=== PATIENT | female | born 2000 | race Caucasian/White ===

== ENCOUNTER 2018-05-19 13:32 | Emergency (ER) | payer OTHER ==
[~2018-05-19] VITALS: Ht 165.1 cm; Wt 113.4 kg
--- OUTSIDE RECORDS SUMMARY | 2018-05-19 13:40 | XMS REPORT | Continuity of Care Document ---
Author Author [facility] Address Unknown Phone Unavailable Allergies Active Description Code Type Severity Reaction Onset Reported/Identified Relationship to Patient Clinical Status Yes CEPHALEXIN SEVERE OTHER Medications There is no data. Problems Date Dx Coded Attending Type Code Diagnosis Diagnosed By 05/13/2014 JARAD ABARCA APRN V04.89 GARDASIL (HPV) DX 05/13/2014 JARAD ABARCA APRN V04.89 GARDASIL (HPV) DX 04/29/2018 Octavio Epperson 401.9 UNSPECIFIED ESSENTIAL HYPERTENSION 04/29/2018 Octavio Epperson 780.79 OTHER MALAISE AND FATIGUE 04/29/2018 Octavio Epperson I10 ESSENTIAL (PRIMARY) HYPERTENSION 04/29/2018 Octavio Epperson R53.83 OTHER FATIGUE 04/29/2018 Octavio Epperson 401.9 UNSPECIFIED ESSENTIAL HYPERTENSION 04/29/2018 Octavio Epperson 461.9 ACUTE SINUSITIS, UNSPECIFIED 04/29/2018 Octavio Epperson 780.79 OTHER MALAISE AND FATIGUE 04/29/2018 Octavio Epperson I10 ESSENTIAL (PRIMARY) HYPERTENSION 04/29/2018 Octavio Epperson J01.90 ACUTE SINUSITIS, UNSPECIFIED 04/29/2018 Octavio Epperson R53.83 OTHER FATIGUE 04/29/2018 Octavio Epperson 401.9 UNSPECIFIED ESSENTIAL HYPERTENSION 04/29/2018 Octavio Epperson 461.9 ACUTE SINUSITIS, UNSPECIFIED 04/29/2018 Octavio Epperson 780.79 OTHER MALAISE AND FATIGUE 04/29/2018 Octavio Epperson I10 ESSENTIAL (PRIMARY) HYPERTENSION 04/29/2018 Octavio Epperson J01.90 ACUTE SINUSITIS, UNSPECIFIED 04/29/2018 Octavio Epperson R53.83 OTHER FATIGUE Procedures There is no data. Results Test Result Range Thyroid Stimulating Hormone - 04/02/17 07:17 TSH 2.04 mIU/mL 0.32-5.00 Thyroid Stimulating Hormone - 04/29/18 08:46 TSH 1.95 mIU/mL 0.32-5.00 Encounters ACCT No. Visit Date/Time Discharge Status Pt. Type Provider Facility Loc./Unit Complaint [id number] 07/15/2014 09:23:00 07/15/2014 23:59:59 CLS Outpatient JARAD ABARCA APRN [id number] 05/13/2014 09:28:00 05/13/2014 23:59:59 CLS Outpatient JARAD ABARCA APRN [id number] 04/29/2018 08:44:00 04/29/2018 23:59:00 DIS Outpatient Octavio Epperson [id number] 04/02/2017 07:12:00 04/02/2017 23:59:00 DIS Outpatient Renetta Luna
--- NOTE | 2018-05-19 13:56 | ED Chest Pain ---
General Chief Complaint: Chest Wall/Rib Pain Stated Complaint: CHEST PAIN Source: patient Exam Limitations: no limitations History of Present Illness Date Seen by Provider: May 19, 2018 Time Seen by Provider: 13:55 Initial Comments To ER with a 3 day history of sharp left-sided chest pain, shortness of breath upon exertion. No fevers chills or cough. No unilateral leg swelling. No history of this. She does have intermittent palpitations. No fevers or chills. She is on control however. Timing/Duration: 2-3 days Severity/Quality: sharp Location: central Activities at Onset: none ASA po SENIOR SCRUM MASTER: No NTG SL SENIOR SCRUM MASTER: No Allergies and Home Medications Allergies Coded Allergies: No Allergy Information Available (Unverified , 05/19/18) Patient Home Medication List Home Medication List Reviewed: Yes Review of Systems Review of Systems Constitutional: see HPI; No chills, No fever EENTM: No Symptoms Reported Respiratory: See HPI; Denies Cough, Denies Shortness of Air; SOA With Exertion Cardiovascular: See HPI, Chest Pain Gastrointestinal: No Symptoms Reported Genitourinary: No Symptoms Reported Musculoskeletal: no symptoms reported Skin: no symptoms reported Psychiatric/Neurological: No Symptoms Reported Endocrine: No Symptoms Reported Past Mfmtfbm-Igcrkl-Ynsqgh Hx Patient Social History Alcohol Use: Denies Use Recreational Drug Use: No Smoking Status: Never a Smoker Past Medical History Surgeries: No Respiratory: No Cardiac: No Neurological: No Genitourinary: No Gastrointestinal: No Musculoskeletal: No Endocrine: No Integumentary: No Physical Exam Vital Signs Vital Signs - First Documented 05/19/18 13:39 Temp 98.7 Pulse 128 Resp 18 B/P (MAP) 141/92 O2 Delivery Room Air Capillary Refill : Height, Weight, BMI Height: '" Weight: lbs. oz. kg; BMI Method: General Appearance: No Apparent Distress, WD/WN, Obese HEENT: PERRL/EOMI, TMs Normal Respiratory: No Accessory Muscle Use, No Respiratory Distress Cardiovascular: Regular Rate, Rhythm, Normal Peripheral Pulses Gastrointestinal: Normal Bowel Sounds, Non Tender, Soft Extremity: Normal Capillary Refill, Normal Inspection Neurologic/Psychiatric: Alert, Oriented x3, No Motor/Sensory Deficits Skin: Normal Color, Warm/Dry Progress/Results/Core Measures Results/Orders Lab Results Laboratory Tests Test 05/19/18 14:47 Range/Units White Blood Count 7.8 4.3-11.0 10^3/uL Red Blood Count 4.69 4.35-5.85 10^6/uL Hemoglobin 12.9 11.5-16.0 G/DL Hematocrit 40 35-52 % Mean Corpuscular Volume 85 80-99 FL Mean Corpuscular Hemoglobin 28 25-34 PG Mean Corpuscular Hemoglobin Concent 33 32-36 G/DL Red Cell Distribution Width 14.6 H 10.0-14.5 % Platelet Count 324 130-400 10^3/uL Mean Platelet Volume 10.4 7.4-10.4 FL Neutrophils (%) (Auto) 69 42-75 % Lymphocytes (%) (Auto) 19 12-44 % Monocytes (%) (Auto) 9 0-12 % Eosinophils (%) (Auto) 3 0-10 % Basophils (%) (Auto) 0 0-10 % Neutrophils # (Auto) 5.3 1.8-7.8 X 10^3 Lymphocytes # (Auto) 1.5 1.0-4.0 X 10^3 Monocytes # (Auto) 0.7 0.0-1.0 X 10^3 Eosinophils # (Auto) 0.3 0.0-0.3 10^3/uL Basophils # (Auto) 0.0 0.0-0.1 10^3/uL D-Dimer 0.62 H 0.00-0.49 UG/ML My Orders Orders - FORETS AMEZCUA APRN Chest Pa/Lat (2 View) (05/19/18 13:54) Fibrin Degradation Products (05/19/18 13:54) Cbc With Automated Diff (05/19/18 13:54) Ekg Tracing (05/19/18 13:54) Iv Heplock-Insert (Order) (05/19/18 14:17) Ct Angio Chest W (05/19/18 15:08) Iohexol Injection (Omnipaque 350 Mg/Ml 1 (05/19/18 15:15) Contrast Received (Contrast Received) (05/19/18 15:15) Ns (Ivpb) (Sodium Chloride 0.9%) (05/19/18 15:15) Hcg,Quantitative (05/19/18 15:16) Ketorolac Injection (Toradol Injection) (05/19/18 15:45) Vital Signs/I&O 05/19/18 13:39 Temp 98.7 Pulse 128 Resp 18 B/P (MAP) 141/92 O2 Delivery Room Air Diagnostic Imaging Diagonstic Imaging: CT Plain Films/CT/US/NM/MRI: chest Comments NAME: GLENNA HORN [facility] REC#: [id number] PT STATUS: REG ER : 2000 PHYSICIAN: FOREST AMEZCUA APRN ADMIT DATE: 05/19/18/ER Draft Date of Exam:05/19/18 CT ANGIO CHEST W PROCEDURE: CT angiography of the chest with contrast. TECHNIQUE: Multiple contiguous axial images were obtained through the chest after uneventful bolus administration of intravenous contrast. 2D reconstructed CTA MIP acquisitions were also performed. INDICATION: Left-sided chest pain. COMPARISON: No prior studies are available for comparison. FINDINGS: Overall quality appears to be suboptimal due to perhaps respiratory motion from the patient. The visualized pulmonary arteries are without evidence of filling defect centrally or within the lobar branches. Thoracic aorta is normal in caliber. There is no dissection. No pericardial or pleural fluid is identified. No pulmonary infiltrates, nodules, or masses are seen. Upper abdomen is unremarkable. IMPRESSION: Somewhat compromised due to patient respiratory motion. No definite findings to suggest pulmonary emboli or thoracic aortic dissection are seen. Dictated on workstation # [id number] Dict: 05/19/18 1534 Trans: 05/19/18 1542 [id number] [id number] Interpreted by: GENEVIEVE SYED MD Electronically signed by: Departure Impression Primary Impression: Pleuritic chest pain Disposition: 01 HOME, SELF-CARE Condition: Stable Departure-Patient Inst. Decision time for Depature: 15:31 Referrals: UNKNOWN (PCP) Primary Care Physician Patient Instructions: Chest Pain That Is Not Caused by the Heart (DC), Pleuritic Chest Pain (DC) Add. Discharge Instructions: 1. Tylenol and Motrin for pain 2. Return to ER for any concerns 3. All discharge instructions reviewed with patient and/or family. Voiced understanding. FOREST AMEZCUA APRN May 19, 2018 13:55
[2018-05-19 14:51] LABS: BASOPHILS % (AUTO) 0 % (0-10); EOSINOPHILS # (AUTO) 0.3 10^3/uL (0.0-0.3); EOSINOPHILS % (AUTO) 3 % (0-10); HEMATOCRIT 40 % (35-52); HEMOGLOBIN 12.9 G/DL (11.5-16.0); LYMPHOCYTES # (AUTO) 1.5 X 10^3 (1.0-4.0); LYMPHOCYTES % (AUTO) 19 % (12-44); MEAN CORPUSCULAR HEMOGLOBIN 28 PG (25-34); MEAN CORPUSCULAR HGB CONC 33 G/DL (32-36); MEAN CORPUSCULAR VOLUME 85 FL (80-99); MEAN PLATELET VOLUME 10.4 FL (7.4-10.4); MONOCYTES # (AUTO) 0.7 X 10^3 (0.0-1.0); MONOCYTES % (AUTO) 9 % (0-12); NEUTROPHILS # (AUTO) 5.3 X 10^3 (1.8-7.8); NEUTROPHILS % (AUTO) 69 % (42-75); PLATELET COUNT 324 10^3/uL (130-400); RED BLOOD COUNT 4.69 10^6/uL (4.35-5.85); RED CELL DISTRIBUTION WIDTH 14.6 % (10.0-14.5); WHITE BLOOD COUNT 7.8 10^3/uL (4.3-11.0)
[2018-05-19] MEDS ORDERED: NS 250 ML (IVPB) BAG IV ONE (15:15)
[2018-05-19] MEDS ORDERED: IOHEXOL 350 MG/ML 150 ML (OMNIPAQUE 350) VIAL IV ONE (15:15)
[2018-05-19] MEDS ORDERED: RECEIVED CONTRAST (Hold Metformin) IV SCH (15:15)
--- NOTE | 2018-05-19 15:27 | Diagnostic Imaging Report ---
Indication: Left-sided chest pain. Time of Exam: 3:38 PM No prior studies are available for comparison. The heart size is normal. The pulmonary vascularity is unremarkable. The lungs are clear. No infiltrate, effusion or pneumothorax is detected. Impression: No acute cardiopulmonary process is detected. Dictated by: Dictated on workstation # [id number]
--- NOTE | 2018-05-19 15:42 | Diagnostic Imaging Report ---
PROCEDURE: CT angiography of the chest with contrast. TECHNIQUE: Multiple contiguous axial images were obtained through the chest after uneventful bolus administration of intravenous contrast. 2D reconstructed CTA MIP acquisitions were also performed. INDICATION: Left-sided chest pain. COMPARISON: No prior studies are available for comparison. FINDINGS: Overall quality appears to be suboptimal due to perhaps respiratory motion from the patient. The visualized pulmonary arteries are without evidence of filling defect centrally or within the lobar branches. Thoracic aorta is normal in caliber. There is no dissection. No pericardial or pleural fluid is identified. No pulmonary infiltrates, nodules, or masses are seen. Upper abdomen is unremarkable. IMPRESSION: Somewhat compromised due to patient respiratory motion. No definite findings to suggest pulmonary emboli or thoracic aortic dissection are seen. Dictated by: Dictated on workstation # [id number]
[2018-05-19] MEDS ORDERED: KETOROLAC 30 MG/ML VIAL IVP ONE (15:45)
[2018-05-19 15:57] VITALS: BP 128/78
== END 2018-05-19 15:57 | disposition home or self-care (01) ==
LOC: ER 13:36
DX: R07.81 Pleurodynia (principal)
CPT/HCPCS: 36415; 71046; 71275; 84703; 85025; 85379; 93005

== ENCOUNTER → 2021-07-03 | Outpatient (CLI) | payer BC ==
--- NOTE | 2021-07-03 15:38 | Diagnostic Imaging Report ---
PROCEDURE: US OB SINGLE FETUS <14 WKS. TECHNIQUE: Multiple real-time grayscale images were obtained over the gravid uterus in various projections. INDICATION: dating. There is a single live IUP measuring approximately 6 weeks 4 days gestational age. heart rate was recorded at 120 bpm. No jordon-gestational sac hemorrhage is detected. Adnexa are unremarkable. No adnexal mass or free fluid is detected. IMPRESSION: Single live IUP, 6 weeks 4 days gestational age. Estimated date of confinement sonographically is 02/22/2022. Dictated by: Dictated on workstation # [id number]
== END ==
LOC: RAD 13:30 → MERGE 13:30
PROVIDERS: ATTEND Obstetrics & Gynecology
DX: Z36.9 Encounter for antenatal screening, unspecified (principal); Z3A.01 Less than 8 weeks gestation of pregnancy
CPT/HCPCS: 76801